=== PATIENT | female | born 1980 | race Two or more races ===

== ENCOUNTER 2017-11-27 06:58 | Day surgery (SDC) | payer BC ==
[~2017-11-27 06:58] MED LIST: Lactated Ringers 1,000 ML IV SCH; Sodium Chloride 0.9% 10 ML Syringe FLUSH PRN; Sodium Chloride 0.9% 2.5 ML Syringe FLUSH PRN
[2017-11-27] MEDS ORDERED: fentaNYL 250 MCG/5 ML SDV ONE (08:42)
[2017-11-27] MEDS ORDERED: Propofol 200 MG/20 ML SDV ONE (08:42)
[2017-11-27] MEDS ORDERED: Midazolam 1 MG/ML 2 ML SDV ONE (08:42)
[2017-11-27] MEDS ORDERED: Lidocaine 2% 5 ML SDV ONE (08:42)
[2017-11-27] MEDS ORDERED: Ondansetron 4 MG/2 ML SDV ONE ×2 (08:42→12:36)
--- NOTE | 2017-11-27 08:50 | PCM.PREANE ---
Preanesthetic Assessment - Anesthesia/Transfusion/Family Hx Anesthesia History: Prior Anesthesia Without Reaction Type of Anesthesia Reaction: Other (see below) (nausea) Family History of Anesthesia Reaction: No Transfusion History: No Prior Transfusion(s) Intubation History: Unknown - Review of Systems General: No Symptoms Pulmonary: No Symptoms Cardiovascular: No Symptoms Gastrointestinal: No Symptoms Neurological: No Symptoms Other: Reports: None - Physical Assessment O2 Sat by Pulse Oximetry: 100 Respiratory Rate: 16 Vital Signs: Last Vital Signs Temp 36.5 C 11/27/17 08:00 Pulse 79 11/27/17 08:00 Resp 16 11/27/17 08:00 BP 108/84 11/27/17 08:00 Pulse Ox 100 11/27/17 08:00 Height: 1.5 m Weight: 53.524 kg ASA Class: 2 Mental Status: Alert & Oriented x3 Airway Class: Mallampati = 2 Dentition: Reports: Normal Dentition Thyro-Mental Finger Breadths: 3 Mouth Opening Finger Breadths: 3 ROM/Head Extension: Full Lungs: Clear to Auscultation, Normal Respiratory Effort Cardiovascular: Regular Rate, Regular Rhythm - Lab Values: Laboratory Last Values WBC 7.59 K/uL (4.0-11.0) 11/27/17 07:57 RBC 4.26 M/uL (4.30-5.90) L 11/27/17 07:57 Hgb 12.6 g/dL (12.0-16.0) 11/27/17 07:57 Hct 37.9 % (36.0-46.0) 11/27/17 07:57 MCV 89.0 fL (80.0-98.0) 11/27/17 07:57 MCH 29.6 pg (27.0-32.0) 11/27/17 07:57 MCHC 33.2 g/dL (31.0-37.0) 11/27/17 07:57 RDW Std Deviation 44.0 fl (28.0-62.0) 11/27/17 07:57 RDW Coeff of Lety 14 % (11.0-15.0) 11/27/17 07:57 Plt Count 246 K/uL (150-400) 11/27/17 07:57 MPV 11.40 fL (7.40-12.00) 11/27/17 07:57 Nucleated RBC % 0.3 /100WBC 11/27/17 07:57 Nucleated RBCs # 0 K/uL 11/27/17 07:57 Urine HCG, Qual NEGATIVE (NEGATIVE) 11/27/17 07:40 - Allergies Allergies/Adverse Reactions: Allergies Allergy/AdvReac Type Severity Reaction Status Date / Time No Known Allergies Allergy Verified 11/22/17 11:46 - Blood Blood Available: No - Anesthesia Plan Pre-Op Medication Ordered: None - Acknowledgements Anesthesia Type Planned: General Anesthesia Pt an Appropriate Candidate for the Planned Anesthesia: Yes Alternatives and Risks of Anesthesia Discussed w Pt/Guardian: Yes Pt/Guardian Understands and Agrees with Anesthesia Plan: Yes PreAnesthesia Questionnaire HEENT History: Reports: Allergic Rhinitis, Other (See Below) Other HEENT History: wears glasses Respiratory History: Reports: Asthma Other Respiratory History: uses inhaler 2x per week (sensitive to pollen, molds ) - Past Surgical History Female Surgical History: Reports: D&C - SUBSTANCE USE Smoking Status *Q: Never Smoker Recreational Drug Use History: No - HOME MEDS Home Medications: Home Meds Acetaminophen [Tylenol] 325 mg PO TID PRN 11/22/17 [History] PNV95/Ferrous Fumarate/FA [ Tablet] 1 tab PO DAILY 11/22/17 [History] - CURRENT (IN HOUSE) MEDS Current Meds: Current Medications Lactated Ringer's (Ringers, Lactated) 1,000 mls @ 125 mls/hr IV ASDIRECTED BERTA Last Admin: 11/27/17 08:02 Dose: 125 mls/hr Sodium Chloride (Saline Flush) 10 ml FLUSH ASDIRECTED PRN PRN Reason: Keep Vein Open Sodium Chloride (Saline Flush) 2.5 ml FLUSH ASDIRECTED PRN PRN Reason: Keep Vein Open Discontinued Medications Fentanyl (Sublimaze) Confirm Administered Dose 250 mcg .ROUTE .STK-MED ONE Stop: 11/27/17 08:43 Lidocaine (Xylocaine-Mpf 2%) Confirm Administered Dose 5 ml .ROUTE .STK-MED ONE Stop: 11/27/17 08:43 Midazolam HCl (Versed 1 Mg/Ml) Confirm Administered Dose 2 mg .ROUTE .STK-MED ONE Stop: 11/27/17 08:43 Ondansetron HCl (Zofran) Confirm Administered Dose 4 mg .ROUTE .STK-MED ONE Stop: 11/27/17 08:43 Propofol (Diprivan 20 Ml) Confirm Administered Dose 200 mg .ROUTE .STK-MED ONE Stop: 11/27/17 08:43
[2017-11-27] MEDS ORDERED: fentaNYL 100 MCG/2 ML SDV IVPUSH PRN (08:55)
[2017-11-27] MEDS ORDERED: Acetaminophen/HYDROcodone 325-10 MG Tab PO PRN (10:39)
--- NOTE | 2017-11-27 10:45 | PCM.OPNOTE ---
- General Post-Op/Procedure Note Date of Surgery/Procedure: 11/27/17 Operative Procedure(s): Hysteroscopy, Polypectomy, dilatation and curettage Findings: Retroverted uterus, 6 weeks size, no adnexal masses. Posterior wall polyp, both fallopian tubes ostia visualized Pre Op Diagnosis: Endometrial polyp Post-Op Diagnosis: Same Anesthesia Technique: General ET Tube Primary Surgeon: Shakila Ceballos Pathology: Endometrial polyp, endometrial currettings Fluid Replacement, Intraop: 1,100 EBL in mLs: 5 Complications: None Condition: Good
[2017-11-27] MEDS ORDERED: Ondansetron 4 MG/2 ML SDV IVPUSH ONE (12:34)
--- NOTE | 2017-11-27 13:55 | PCM48HPAN ---
Post Anesthesia Note - EVALUATION WITHIN 48HRS OF ANESTHETIC Vital Signs in Normal Range: Yes Patient Participated in Evaluation: Yes Respiratory Function Stable: Yes Airway Patent: Yes Cardiovascular Function Stable: Yes Hydration Status Stable: Yes Pain Control Satisfactory: Yes Nausea and Vomiting Control Satisfactory: Yes Mental Status Recovered: Yes Resp Rate: 14
--- NOTE | 2017-11-27 13:55 | OR ---
SURGEON: Shakila Ceballos MD DATE OF PROCEDURE: 11/27/2017 PREOPERATIVE DIAGNOSIS: Endometrial polyp. POSTOPERATIVE DIAGNOSIS: Endometrial polyp. PROCEDURES: Hysteroscopy, polypectomy, dilatation with curettage. ANESTHESIA: General endotracheal. ESTIMATED BLOOD LOSS: Minimal. COMPLICATIONS: None. DISPOSITION: Stable to recovery room. PATHOLOGY: Endometrial polyp. Endometrial curettings. FINDINGS: Mobile retroverted uterus, sounded to 8 cm. No cervical lesions visualized and no adnexal masses palpated. Hysteroscopic findings revealed a solitary posterior wall endometrial polyp. Both fallopian tube ostia were visualized. BRIEF HISTORY: The patient is a 37-year-old lady, who was found to have an endometrial polyp on pelvic ultrasound for irregular bleeding, which was confirmed on saline- enchanced sonohysterogram. The findings were reviewed with the patient and management options, alternatives, were discussed and she accepted to proceed with hysteroscopy with polypectomy. The risks of the procedure were discussed with the patient including, but not limited to bleeding, infection, injury to the uterus, cervix, and other surrounding organs. Appropriate surgical consent was obtained. DESCRIPTION OF PROCEDURE: The patient was taken to the operating room where she underwent induction of general anesthesia without difficulty. After adequate level of anesthesia, she was then placed in dorsal lithotomy position, prepped and draped in the usual sterile fashion for vaginal procedure. The bladder was emptied. A time-out was held. SCDs were in place. Examination under anesthesia revealed the aforementioned findings. A bivalve speculum was placed in the vagina and the anterior lip of the cervix was grasped with a single-tooth tenaculum. The uterine cavity was sounded to a depth of 8 cm. The cervical os was then serially dilated up to #7 Hegar dilator with 6.5 mm MyoSure operative scope was placed into the uterine cavity under direct visualization using normal saline as distention media. Upon entering the uterine cavity, the aforementioned pathology was noted. The outflow channel of the MyoSure device was then removed under visualization and the MyoSure tissue retrieval device was then inserted through the channel. The retrieval device was then aligned along the polyp and it was easily resected completely. A survey of the uterine cavity post resection revealed no uterine wall injury. The MyoSure hysteroscopic device was then removed from the cavity. Gentle endometrial curettage was then performed. Once this was completed, all the instruments were removed from the patient's vagina. The area on the cervix with a single-tooth tenaculum was placed, was found to be hemostatic. All sponge and instrument counts were correct. Input and output of the normal saline were recorded by [employer] fluid management system. Please refer to the nursing chart for the amount of the deficit. The patient was taken to the recovery in stable condition. KAREN / NIEVES /[id number] MTDD
== END 2017-11-27 13:30 | disposition home or self-care (01) ==
LOC: MW.SDS 06:58
PROVIDERS: ATTEND Obstetrics & Gynecology
DX: N84.0 Polyp of corpus uteri (principal)
CPT/HCPCS: 36415; 58558; 81025; 85027; J2250; J2405; J3010; J7120; J2704